=== PATIENT | male | born 1965 | race African-American/Black ===

== ENCOUNTER 2019-04-12 22:57 | Emergency (ER) | payer SELFPAY ==
[~2019-04-12] VITALS: Ht 182.9 cm; Wt 100.0 kg
[~2019-04-12 22:57] MED LIST: LIPITOR 80MG80 MG PO; NORCO 325 MG-51 TAB PO; NORVASC 10MG10 MG PO
[2019-04-12 22:59] VITALS: TEMP 98
[2019-04-12 23:24] LABS: BASO % 0.5 % (0.0-2.0); EOS # 0.6 (0.0-0.7); EOS % 7.4 % (0-4.0); GRAN # 3.6 (1.4-6.5); GRAN % 44.8 % (42.2-75.2); HEMATOCRIT 41.9 % (42.0-52.0); HEMOGLOBIN 14.5 g/dl (13.5-18.0); LYMPH # 3.2 (1.2-3.4); LYMPH % 40.4 % (20.0-51.0); MEAN CELL VOLUME 90 fl (80.0-100.0); MEAN CORPUSCULAR HEMOGLOBIN 31 pg (27.0-31.0); MEAN CORPUSCULAR HGB CONC 35 g/dl (33.0-37.0); MEAN PLATELET VOLUME 9.3 fl (7.4-10.4); MONO # 0.5 (0.1-0.6); MONO % 6.8 % (1.7-9.3); PLATELET COUNT 288 K/mm3 (130-400); RED BLOOD COUNT 4.65 M/mm3 (4.20-5.60); REDCELL DISTRIBUTION WIDTH-CV 12.1 % (11.5-14.5)
[2019-04-12 23:29] LABS: PROTHROMBIN TIME 11.4 SECONDS (9.7-12.8)
[2019-04-12] MEDS ORDERED: ZYLOPRIM 100MG100 MG PO (23:33)
[2019-04-12] MEDS ORDERED: ASPIRIN 81M81 MG/TA2 (23:33)
[2019-04-12 23:34] LABS: ALBUMIN 4.4 gm/dL (3.5-5.0); BILIRUBIN,TOTAL 0.4 mg/dL (0.0-1.0); CALCIUM 9.6 mg/dL (8.4-10.2); CREATININE, serum 0.98 (0.66-1.25); POTASSIUM 3.1 mmol/L (3.4-5.0); TOTAL PROTEIN 7.9 gm/dL (6.4-8.2)
[2019-04-12] MEDS ORDERED: vitamin d (23:34)
[2019-04-12 23:45] LABS: TROPONIN-I 0.019 ng/mL (0.000-0.035)
[2019-04-13] MEDS ORDERED: COZAAR 25MG25 MG/TAB PO
[2019-04-13 01:57] VITALS: BP 153/86; PULSE 62
== END 2019-04-13 01:56 | disposition home or self-care (01) ==
LOC: COL.ER 22:57
PROVIDERS: Emergency Medicine
DX: I10 Essential (primary) hypertension (principal); E78.5 Hyperlipidemia, unspecified; Z88.0 Allergy status to penicillin; Z79.82 Long term (current) use of aspirin
CPT/HCPCS: J0360